=== PATIENT | male | born 2000 | race Caucasian/White ===

== ENCOUNTER 2020-08-12 17:49 | Emergency (ER) | payer BC, SELFPAY ==
[2020-08-12 18:30] VITALS: BP 121/86; PULSE 91; RESP 20; TEMP 36.6; O2SAT 100; BMI 21.6
[2020-08-12 19:06] VITALS: BP 121/86; PULSE 91; RESP 20; TEMP 36.6; O2SAT 100
--- NOTE | 2020-08-12 19:10 | HMH.EDUTC ---
[facility] [place] Disposition Clinical Impression: Muscle strain Disposition: Home, Self-Care Condition on Discharge: Good Instructions: Muscle Strain, Methocarbamol, Methylprednisolone Additional Instructions: *Ibuprofen slim 6 hours with meal as needed for pain/inflammation *Not additional anti-inflammatory like motrin, aleve, advil with the above amount of ibuprofen. You can still take Tylenol every 4 hours as needed if you need something else for pain *Ice 20 minutes every 2 hours for the first 48 hours after the initial injury followed by moist heat every 20 minutes 3-4 times a day to affected area *Muscle relaxer as prescribed as needed for muscle spasms but remember, it WILL cause drowsiness You cannot take it and drive, operate machinery or care for small children. *Keep this area active, no movement leads to more stiffness, However take it easy and avoid heavy lifting pushing or pulling *Follow up with you family doctor if no improvement for further treatment Return if needed Straight to ER if any life threatening symptoms Prescriptions: methylPREDNISolone [Medrol 4mg tab] 4 mg PO DIRECTED #21 tab Transmission Status: Received by [facility] methocarbamoL [Methocarbamol 500mg Tablet] 500 mg PO BID PRN 5 Days #10 tab PRN Reason: Muscle Spasm Transmission Status: Received by [facility] Referrals: Aristides De Santiago [Primary Care Provider] - As needed Time of Disposition: 19:21 Medical Decision Making - Ramón Inquiry Pt receiving controlled substance: No Ramón was queried for this patient: No Vital Signs: 08/12/20 18:30 08/12/20 19:06 Temperature 97.8 F 97.8 F Temperature Source Oral Pulse Rate 91 H Pulse Rate [Right Brachial] 91 H Respiratory Rate 20 20 Blood Pressure 121/86 Blood Pressure [Right Arm] 121/86 Blood Pressure Mean [Right Arm] 97 Blood Pressure Source [Right Arm] Automatic Cuff Blood Pressure Position [Right Arm] Sitting 02 Sat by Pulse Oximetry 100 Oxygen Delivery Method Room Air Medical Decision Narrative: Patient sitting on exam table playing on phone Patient denied chest pain states that he feels like he may have pulled the muscle in his left upper chest that goes under his arm States that symptoms started after he lifted a cabinet at work but not sure if he may have lifted wrong or something. States that he has feeling of tingling that shoots down arm into fingers [facility] [place] HPI - General Stated complaint: numbness left arm Time Seen by Provider: 08/12/20 19:10 Mode of Arrival: Ambulatory Source of Information: Patient Limitations: No Limitations Description of Symptoms (Recalled from Triage Doc. by RN): PATIENT C/O MUSCLE/NERVE PAIN IN LEFT CHEST THAT RADIATES DOWN LEFT ARM. STATES THE PAIN STARTED AFTER HE WAS LIFTING A CABINET AT WORK HEENT Symptoms (Recalled from RN notes): No Resp Symptoms (Recalled from RN notes): No Skin Symptoms (Recalled from RN notes): No MS Symptoms (Recalled from RN notes): Yes Functional Status (Recalled from RN notes): WNL - History of Present Illness Provider Complaint: Patient states that he was lifting a cabinet at work earlier States that he noticed the muscle in his left upper chest that wraps under his arm felt sore and feels like he is having tingling like sensation down his left arm and into his hand States that he is able to make a fist but feels tingling in his fingers when he does States that muscle is tender when he touches it and does not hurt unles he moves his arm States that he feels like he has a pinched nerve or pulled muscle States that symptoms didnt start until after lifting cabinet earlier - Related Data Previous Rx's Medication Instructions Recorded methocarbamoL [Methocarbamol 500mg 500 mg PO BID PRN 5 Days #10 tab 08/12/20 Tablet] methylPREDNISolone [Medrol 4mg 4 mg PO DIRECTED #21 tab 08/12/20 tab] Allergies Allergy/AdvReac Type Severity Reaction Status Date / Time No Known Nas
== END 2020-08-12 19:26 | disposition home or self-care (01) ==
PROVIDERS: Emergency Provider Nurse Practitioner; PCP Pediatrics
DX: S46.212A Strain of muscle, fascia and tendon of other parts of biceps, left arm, initial encounter (principal); X50.0XXA Overexertion from strenuous movement or load, initial encounter; Y92.89 Other specified places as the place of occurrence of the external cause
CPT/HCPCS: 99202; G0463